=== PATIENT | female | born 1995 | race American Indian/Alaskan Native ===

== ENCOUNTER 2017-08-07 10:59 | Emergency (ER) | payer SELFPAY ==
[2017-08-07 11:19] VITALS: BP 121/76
--- NOTE | 2017-08-07 11:31 | Emergency Department Report ---
ED Rash HPI - HPI Chief Complaint: Skin Rash Stated Complaint: SWOLLEN ARM/ CARE Time Seen by Provider: 08/07/17 11:24 Duration: 5 Days Location: Upper Extremities (right forearm) Suspected Cause: Unknown Rash Symptoms: No Itching, No Facial Swelling, No Tongue/Oral Swelling, No Breathing Difficulties, No Choking Sensation, No Wheezing/Dyspnea, No Peeling, No Blistering, No Fever, No Lightheaded, No Malaise, No Myalgias Severity: severe (7/10) Other History: She reports that she was having in pain to her right forearm redness and swelling over 2 day period. She says she doesn't know what happened in. Pain is 7 out of 10. Tetanus vaccine is up-to-date. Pain feels sore and irritated. Denies any respiratory symptoms. Patient also reported that she is 5 weeks and requesting care. She denies any nausea, vomiting, abdominal or back pain. Denies any fever or chills. Denies any vaginal bleeding or discharge. Denies any urinary burning, frequency or urgency. Triage note reflect the patient says she was having pelvic pain and also left upper rib cage but patient says she is here today for rash on her right forearm and to get care because she is 5 weeks . ED Review of Systems ROS: Stated complaint: SWOLLEN ARM/ CARE Other details as noted in HPI Comment: All other systems reviewed and negative Constitutional: no symptoms reported ENT: denies: throat pain, congestion Respiratory: no symptoms reported Cardiovascular: denies: chest pain, palpitations, dyspnea on exertion, edema, syncope, paroxysmal nocturnal dyspnea Gastrointestinal: denies: abdominal pain, nausea, vomiting, diarrhea, constipation, hematemesis, melena Genitourinary: denies: urgency, dysuria, frequency, hematuria, discharge Musculoskeletal: arthralgia (right forearm). denies: back pain, joint swelling , myalgia Skin: rash, change in color (8 forearm) Neurological: denies: headache, weakness, numbness, paresthesias, confusion, abnormal gait, vertigo ED Past Medical Hx - Past Medical History Previous Medical History?: Yes Additional medical history: anemia - Surgical History Past Surgical History?: No - Family History Family history: no significant - Social History Smoking Status: Never Smoker Substance Use Type: None - Medications Home Medications: Home Medications Medication Instructions Recorded Confirmed Last Taken Type Miconazole Nitrate [Monistat 3] 15 gm VG QHS #3 crm.pf.allen 11/22/14 Unknown Rx Amoxicillin [Trimox CAP] 500 mg PO Q8H #30 capsule 05/28/16 Unknown Rx Diclofenac Sodium 75 mg PO BID #30 tablet.dr 05/28/16 Unknown Rx HYDROcodone/APAP 5-325 [[place] 1 each PO Q6HR PRN #7 tablet 05/28/16 Unknown Rx 5/325] Acetaminophen [Tylenol] 500 mg PO Q8HR PRN 4 Days #12 08/07/17 Unknown Rx tablet Cephalexin [Keflex] 500 mg PO Q8HR 10 Days #30 cap 08/07/17 Unknown Rx Vit-Fe Fumar-FA [ 1 tab PO QDAY 30 Days #30 tablet 08/07/17 Unknown Rx Vitamin] Rash Exam - Exam General: Vital signs noted. No distress. Alert and acting appropriately. This is a 21-year-old female well-nourished well-developed in no acute distress. HEENT: No Periorbital Edema, No Conjuctival Injection, No Chemosis, No Perioral Edema, No Tongue Edema, No Uvular Edema, No Compromised Airway, No Drooling Lungs: Yes Good Air Exchange, No Wheezes, No Ronchi, No Stridor, No Cough, No Labored Respirations, No Retractions, No Use of Accessory Muscles, No Other Abnormal Lung Sounds (no chest wall tenderness) Heart: Yes Regular (S1, S2. Regular rate and rhythm.), No Murmur Skin: Yes Tenderness (proximal right forearm), Yes Erythema (proximal right forearm 6x7 centimeter area of erythema), Yes Edema (mild swelling to the proximal right forearm), No Urticarial Rash, No Maculopapular Rash, No Morbilliform rash, No Bulla(e), No Excoriations, No Weeping, No Encrustations, No Other (she has normal range of motion of all extremities..) Other: Positive: Abdomen Normal (abdomen soft, nontender to palpate in all quadrants, no guarding or rebound tenderness. No CVA tenderness.), Neurologic Normal (GCS of 15, alert and oriented 3, speech is clear and fluid, normal gait. No motor or sensory deficit), Musculoskeletal Normal (+5 strength in all extremities, no joint deformity, crepitus or effusion. No joint erythema. Patient has less 2 pulses to all extremities. No deformities noted. No clubbing, cyanosis or edema. No neurovascular compromise.) ED Course Vital Signs 08/07/17 11:09 Temperature 98.7 F Pulse Rate 88 Respiratory 16 Rate Blood Pressure 121/76 O2 Sat by Pulse 100 Oximetry - Reevaluation(s) Reevaluation #1: 08/07/17 13:16 She received Tylenol plain 500 mg emergency for pain and positive relief. She was also given Rocephin 1 g IM in emergency room for cellulitis of her right forearm. ED Medical Decision Making - Medical Decision Making ED course: She presented to emergency room with complaints of right forearm redness and swelling and she does not know the cause. Physical findings with erythema 6 x 7 cm ear for redness, mild swelling and tenderness to proximal right forearm. She is also requesting care and is asymptomatic. She said she is 5 weeks and she does not have [facility] but patient does have access to [facility] she just needs to be referred to one. I discussed with patient that she has cellulitis of her right forearm and she will be treated with antibiotic and she can take plain Tylenol for pain as needed. I discussed with her that care is not offered any emergency room and she is not having any symptoms such as abdominal pain, nausea or vomiting, vaginal bleeding or discharge or back pain so I'll refer her to [facility] and she will need to call and Wednesday to schedule an appointment for visits. Patient was given Tylenol 500 mg in emergency room recently with her pain. She has cellulitis of her right forearm she was given Rocephin 1 g IM with no adverse reaction and she said her tetanus shot is up-to-date. Patient voiced understanding the discharge instructions treatment plan and need to follow-up for care. I will start her on vitamin. Discharged home in stable condition with prescription for Tylenol plain, Keflex, vitamin and given referrals fto various [facility] clinics. Discussed with her she has abdominal pain, back pain, vaginal bleeding to return to the emergency room [facility] otherwise follow up with [facility] for care Critical care attestation.: If time is entered above; I have spent that time in minutes in the direct care of this critically ill patient, excluding procedure time. ED Disposition Clinical Impression: Cellulitis of forearm, right, Pain in right forearm, Encounter for care in first trimester of first Disposition: DC-01 TO HOME OR SELFCARE Is pt being admited?: No Does the pt Need Aspirin: No Condition: Stable Instructions: Vitamins (By mouth), Cellulitis (ED), Arthralgia (ED), (ED) Additional Instructions: Please see referrals to [facility] doctors. Call on 08/09/2017 to schedule care Take vitamin as prescribed Take antibiotic as prescribed Increase fluid intake to 2-3 L of liquids daily Take Tylenol as needed for pain. Refer to prescription. care is not usually offered in an emergency room so you will need to follow up with [facility] to initiate care Prescriptions: Acetaminophen [Tylenol] 500 mg PO Q8HR PRN 4 Days #12 tablet PRN Reason: Pain, Mild (1-3) Cephalexin [Keflex] 500 mg PO Q8HR 10 Days #30 cap Vit-Fe Fumar-FA [ Vitamin] 1 tab PO QDAY 30 Days #30 tablet Referrals: PRIMARY CAREMD [Primary Care Provider] - 3-5 Days [facility] [Provider Group] - 08/09/17 [facility] [Provider Group] - 08/09/17 [facility] [Outside] - 08/09/17
[2017-08-07] MEDS ORDERED: ROCEPHIN IM STA (12:33)
[2017-08-07] MEDS ORDERED: TYLENOL PO ONE (12:34)
[2017-08-07] MEDS ORDERED: WATER FOR INJ (PF) 10 ML ONE (12:52)
== END 2017-08-07 13:49 | disposition home or self-care (01) ==
LOC: ED 10:59
DX: O26.891 Other specified pregnancy related conditions, first trimester (principal); L03.113 Cellulitis of right upper limb; Z3A.01 Less than 8 weeks gestation of pregnancy
CPT/HCPCS: 96372; 99282; J0696

== ENCOUNTER 2021-02-26 10:51 | Emergency (ER) | payer SELFPAY ==
[2021-02-26 12:55] LABS: Bacteria,Urine 2+ /HPF (Negative); Bilirubin,Urine NEG (Negative); Blood,Urine NEG (Negative); Color,Urine Yellow (Yellow); Mucus,Urine 2+ /HPF
[2021-02-26 13:08] LABS: Eosinophils % (Auto) 0.5 % (0.0-4.3); Hemoglobin 9.3 gm/dl (10.1-14.3); Lymphocytes % (Auto) 40.9 % (13.4-35.0); Mean Corpuscular HGB Conc 31 % (30-34); Monocytes # (Auto) 0.4 K/mm3 (0.0-0.8); Monocytes % (Auto) 7.9 % (0.0-7.3); Platelet Count 198 K/mm3 (140-440); Red Blood Count 4.73 M/mm3 (3.65-5.03)
[2021-02-26 13:10] LABS: Mean Corpuscular Volume 64 fl (79-97)
[2021-02-26 13:12] LABS: HCG Qualitative,Urine Negative (Negative)
[2021-02-26 13:16] LABS: Alanine Aminotransferase 16 units/L (7-56); Albumin 4.5 g/dL (3.9-5); Blood Urea Nitrogen 4 mg/dL (7-17); Calcium 9.4 mg/dL (8.4-10.2); Hemolysis Index 0
[2021-02-26 13:30] LABS: BUN/Creatinine Ratio 7
--- NOTE | 2021-02-26 17:17 | Emergency Department Report ---
ED Abdominal Pain HPI - General Chief Complaint: Abdominal Pain Stated Complaint: STOMACH PAIN PUI?: No Time Seen by Provider: 02/26/21 14:29 Source: patient Mode of arrival: Ambulatory Limitations: No Limitations - History of Present Illness Initial Comments: Patient is a 25-year-old female that presents emergency room with complaints of bilateral lower quadrant abdominal pain. Patient states her pain started 2 or 3 days ago. Patient also complains of nausea without vomiting. Patient denies fever and chills. Patient states the pain is a 10 out of 10. Patient states the pain radiates to her bilateral flanks. Patient denies dysuria. Patient denies upper abdominal pain. Patient denies chest pain. Patient denies sh ortness of breath. Patient denies dyspepsia. Patient denies diarrhea. Patient denies recent travel. Patient denies recent international travel. Patient denies exposure to the novel coronavirus. Patient denies sick contacts. Patient denies fever and chills. Patient denies cough. Patient denies diarrhea. Patient denies coming in contact with anybody with symptoms of the novel coronavirus. MD Complaint: abdominal pain -: Sudden Location: LLQ, RLQ Radiation: L flank, R flank Migration to: no migration Severity: severe Severity scale (0 -10): 10 Quality: stabbing Consistency: constant Improves With: rest Worsens With: movement Associated Symptoms: nausea. denies: vomiting, diarrhea, fever, chills, constipation, dysuria, hematemesis, hematochezia, melena, hematuria, syncope - Related Data Previous Rx's Medication Instructions Recorded Last Taken Type Miconazole Nitrate [Monistat 3] 15 gm VG QHS #3 crm.pf.allen 11/22/14 Unknown Rx Amoxicillin [Trimox CAP] 500 mg PO Q8H #30 capsule 05/28/16 Unknown Rx Diclofenac Sodium 75 mg PO BID #30 tablet. 05/28/16 Unknown Rx Acetaminophen [Tylenol] 500 mg PO Q8HR PRN 4 Days #12 08/07/17 Unknown Rx tablet Vit-Fe Fumar-FA [ 1 tab PO QDAY 30 Days #30 tablet 08/07/17 Unknown Rx Vitamin] HYDROcodone/APAP 5-325 [[place] 1 each PO Q6HR PRN #8 tablet 02/26/21 Unknown Rx 5-325 mg TAB] Ibuprofen [Motrin 800 MG tab] 800 mg PO Q8HR PRN #30 tablet 02/26/21 Unknown Rx Iron Fum,Ps/Folic/Bcomp,C No.9 1 each PO BID 30 Days #60 capsule 02/26/21 Unknown Rx [Integra Plus Capsule] cephALEXin [Keflex] 500 mg PO Q8HR 10 Days #30 cap 02/26/21 Unknown Rx Allergies Allergy/AdvReac Type Severity Reaction Status Date / Time No Known Allergies Allergy Verified 02/26/21 10:56 ED Review of Systems ROS: Stated complaint: STOMACH PAIN Other details as noted in HPI Constitutional: denies: chills, fever Eyes: denies: eye pain, eye discharge, vision change ENT: denies: ear pain, throat pain Respiratory: denies: cough, shortness of breath, wheezing Cardiovascular: denies: chest pain, palpitations Endocrine: no symptoms reported Gastrointestinal: as per HPI, abdominal pain, nausea. denies: vomiting, diarrhea Genitourinary: denies: urgency, dysuria, discharge Musculoskeletal: denies: back pain, joint swelling, arthralgia Skin: denies: rash, lesions Neurological: denies: headache, weakness, paresthesias Psychiatric: denies: anxiety, depression Hematological/Lymphatic: denies: easy bleeding, easy bruising ED Past Medical Hx - Past Medical History Previous Medical History?: Yes Additional medical history: anemia - Surgical History Past Surgical History?: No - Family History Family history: no significant - Social History Smoking Status: Never Smoker Substance Use Type: None - Medications Home Medications: Home Medications Medication Instructions Recorded Confirmed Last Taken Type Miconazole Nitrate [Monistat 3] 15 gm VG QHS #3 crm.pf.allen 11/22/14 Unknown Rx Amoxicillin [Trimox CAP] 500 mg PO Q8H #30 capsule 05/28/16 Unknown Rx Diclofenac Sodium 75 mg PO BID #30 tablet. 05/28/16 Unknown Rx Acetaminophen [Tylenol] 500 mg PO Q8HR PRN 4 Days #12 08/07/17 Unknown Rx tablet Vit-Fe Fumar-FA [ 1 tab PO QDAY 30 Days #30 tablet 08/07/17 Unknown Rx Vitamin] HYDROcodone/APAP 5-325 [[place] 1 each PO Q6HR PRN #8 tablet 02/26/21 Unknown Rx 5-325 mg TAB] Ibuprofen [Motrin 800 MG tab] 800 mg PO Q8HR PRN #30 tablet 02/26/21 Unknown Rx Iron Fum,Ps/Folic/Bcomp,C No.9 1 each PO BID 30 Days #60 capsule 02/26/21 Unknown Rx [Integra Plus Capsule] cephALEXin [Keflex] 500 mg PO Q8HR 10 Days #30 cap 02/26/21 Unknown Rx ED Physical Exam - General Limitations: No Limitations General appearance: alert, in no apparent distress - Head Head exam: Present: atraumatic, normocephalic - Eye Eye exam: Present: normal appearance - ENT ENT exam: Present: mucous membranes moist - Neck Neck exam: Present: normal inspection - Respiratory Respiratory exam: Present: normal lung sounds bilaterally. Absent: respiratory distress - Cardiovascular Cardiovascular Exam: Present: regular rate, normal rhythm. Absent: systolic murmur, diastolic murmur, rubs, gallop - GI/Abdominal GI/Abdominal exam: Present: soft, tenderness (Tenderness to palpation bilateral lower quadrants.), normal bowel sounds - Extremities Exam Extremities exam: Present: normal inspection - Back Exam Back exam: Present: normal inspection - Neurological Exam Neurological exam: Present: alert, oriented X3 - Psychiatric Psychiatric exam: Present: normal affect, normal mood - Skin Skin exam: Present: warm, dry, intact, normal color. Absent: rash ED Course Vital Signs 02/26/21 02/26/21 02/26/21 10:58 20:13 21:00 Temperature 98.6 F Pulse Rate 90 67 78 Respiratory 16 17 16 Rate Blood Pressure 104/60 Blood Pressure 110/70 127/82 [Left] O2 Sat by Pulse 100 98 100 Oximetry - Reevaluation(s) Reevaluation #1: Patient states her pain is slightly better. I discussed all results and clinical findings with patient. I discussed plan of care with patient. Patient agrees with plan of care. Patient is stable for discharge. Patient will be discharged home. Patient given discharge instructions. Patient voiced understanding of discharge instructions. 02/26/21 22:32 ED Medical Decision Making - Lab Data Result diagrams: 02/26/21 12:18 02/26/21 12:18 - Radiology Data Radiology results: report reviewed CT ABDOMEN AND PELVIS WITH CONTRAST HISTORY: abd pain x3days [id number] 100ml. COMPARISON: None. TECHNIQUE: CT images of the abdomen and pelvis were obtained following administration of intravenous contrast. All CT scans at this location are performed using CT dose reduction for ALARA by means of automated exposure control. CONTRAST: 100 ml of intravenous contrast administered. FINDINGS: Lungs/bones: The lung bases are clear. No acute osseous abnormality identified. Abdomen/pelvis: The liver, gallbladder, spleen, pancreas, adrenals, kidneys, and proximal GI tract appear unremarkable. Urinary bladder is unremarkable. Uterus contains a small amount of fluid in the central endometrial canal. There is a 3.2 cm simple-appearing cystic structure interposed between the right posterior aspect of the uterus and the anterior aspect of the rectum as seen on image 128 of series #2. There is trace simple pelvic free fluid is well. The right ovary is not well seen on this exam. The left ovary appears normal. No acute colonic abnormality identified. IMPRESSION: 1. Simple-appearing cystic structure in the deep pelvis as outlined above is most likely right adnexal/ovarian in origin and there is small amount of simple pelvic free fluid. Recommend follow-up pelvic ultrasound for more thorough evaluation. Pelvic Ultrasound HISTORY: lower abd pain.. TECHNIQUE: Grayscale and color imaging performed. COMPARISON: CT abdomen/pelvis from today FINDINGS: Uterus measures 8.8 x 4.5 x 5.3 cm with endometrial echocomplex measuring 1.1 cm. There is a complex appearing right adnexal/ovarian cyst with no internal blood flow. There is marginal blood flow. The right ovary otherwise appears normal. Left ovary also appears normal. Trace pelvic free fluid is present. IMPRESSION: Mildly complex right ovarian/adnexal cyst, most likely functional. Recommend follow-up within 6 weeks with pelvic ultrasound to ensure resolution. - Medical Decision Making Patient is a 25-year-old female presents emergency room with complaints of lower abdominal pain. Patient had labs done which were essentially unremarkable save for positive UA for UTI. Patient was tender on palpation patient had a CT scan patient CT shows findings and recommended an ultrasound. Pelvic ultrasound done and it showed complex right ovarian cyst. Patient is stable for discharge. Patient given antibiotics in the ER patient given fluids in ER. Patient responded well to treatment. Patient pain improved while in ER. Patient given oral antibiotics as a prescription. Patient does not require further inpatient or emergency room services. Patient stable for discharge. Patient discharged home. - Differential Diagnosis Appendicitis, pyelonephritis, abdominal pain, nausea, UTI, ovarian cyst Critical care attestation.: If time is entered above; I have spent that time in minutes in the direct care of this critically ill patient, excluding procedure time. ED Disposition Clinical Impression: Abdominal pain Qualifiers: Abdominal location: lower abdomen, unspecified Qualified Code(s): R10.30 - Lower abdominal pain, unspecified UTI (urinary tract infection) Qualifiers: Urinary tract infection type: acute cystitis Hematuria presence: with hematuria Qualified Code(s): N30.01 - Acute cystitis with hematuria Ovarian cyst Qualifiers: Laterality: right Qualified Code(s): N83.201 - Unspecified ovarian cyst, right side Anemia Qualifiers: Anemia type: unspecified type Qualified Code(s): D64.9 - Anemia, unspecified Disposition: DC- TO HOME OR SELFCARE Is pt being admited?: No Does the pt Need Aspirin: No Condition: Stable Instructions: Abdominal Pain, Adult, Urinary Tract Infection, Adult, [id number], Ovarian Cyst, [id number], Flank Pain, Adult, [id number], Abdominal Pain (ED) Additional Instructions: Patient to follow-up with primary care in 2 to 3 days. Patient to follow-up with [facility] in 2 to 3 days. Patient to rest. Patient to increase water. . Patient to take Tylenol or ibuprofen as needed for pain. Patient to take meds as directed. Patient to return to the ER if condition worsens, changes or new symptoms arise. Prescriptions: Iron Fum,Ps/Folic/Bcomp,C No.9 [Integra Plus Capsule] 1 each PO BID 30 Days #60 capsule cephALEXin [Keflex] 500 mg PO Q8HR 10 Days #30 cap Ibuprofen [Motrin 800 MG tab] 800 mg PO Q8HR PRN #30 tablet PRN Reason: Pain , Severe (7-10) HYDROcodone/APAP 5-325 [[place] 5-325 mg TAB] 1 each PO Q6HR PRN #8 tablet PRN Reason: Pain Referrals: PRIMARY CARE, [Primary Care Provider] - 2-3 Days Time of Disposition: 22:19
[2021-02-26] MEDS ORDERED: cefTRIAXone/NS 2 GM/100 ML 2 GM/100 ML BAG IV ONE (17:54)
[2021-02-26] MEDS ORDERED: ONDANSETRON 4 MG/2 ML INJ IV ONE (17:54)
[2021-02-26] MEDS ORDERED: SODIUM CHLORIDE 0.9% 1000 ML 1,000 ML IV ONE (17:54)
--- NOTE | 2021-02-26 19:41 | Cat Scan Report ---
CT ABDOMEN AND PELVIS WITH CONTRAST HISTORY: abd pain x3days [id number] 100ml. COMPARISON: None. TECHNIQUE: CT images of the abdomen and pelvis were obtained following administration of intravenous contrast. All CT scans at this location are performed using CT dose reduction for ALARA by means of automated exposure control. CONTRAST: 100 ml of intravenous contrast administered. FINDINGS: Lungs/bones: The lung bases are clear. No acute osseous abnormality identified. Abdomen/pelvis: The liver, gallbladder, spleen, pancreas, adrenals, kidneys, and proximal GI tract a ppear unremarkable. Urinary bladder is unremarkable. Uterus contains a small amount of fluid in the central endometrial c anal. There is a 3.2 cm simple-appearing cystic structure interposed between the right posterior aspe ct of the uterus and the anterior aspect of the rectum as seen on image 128 of series #2. There is tr maurice simple pelvic free fluid is well. The right ovary is not well seen on this exam. The left ovary a ppears normal. No acute colonic abnormality identified. IMPRESSION: 1. Simple-appearing cystic structure in the deep pelvis as outlined above is most likely right adnexa l/ovarian in origin and there is small amount of simple pelvic free fluid. Recommend follow-up pelvic ultrasound for more thorough evaluation. Signer Name: Reilly Diaz MD Signed: 02/26/2021 7:37 PM Workstation Name: [id number]
[2021-02-26] MEDS ORDERED: ONDANSETRON 4 MG/2 ML INJ ONE (19:59)
--- NOTE | 2021-02-26 21:50 | Ultrasound Report ---
Pelvic Ultrasound HISTORY: lower abd pain.. TECHNIQUE: Grayscale and color imaging performed. COMPARISON: CT abdomen/pelvis from today FINDINGS: Uterus measures 8.8 x 4.5 x 5.3 cm with endometrial echocomplex measuring 1.1 cm. There is a complex appearing right adnexal/ovarian cyst with no internal blood flow. There is margina l blood flow. The right ovary otherwise appears normal. Left ovary also appears normal. Trace pelvic free fluid is present. IMPRESSION: Mildly complex right ovarian/adnexal cyst, most likely functional. Recommend follow-up wi thin 6 weeks with pelvic ultrasound to ensure resolution. Signer Name: Reilly Diaz MD Signed: 02/26/2021 9:46 PM Workstation Name: [id number]
[2021-02-26] MEDS ORDERED: AZITHROMYCIN 1 GM ORAL PWDR PACKET PO ONE (21:57)
[2021-02-26 22:42] VITALS: BP 108/60
== END 2021-02-26 22:57 | disposition home or self-care (01) ==
LOC: ED 10:51
DX: N39.0 Urinary tract infection, site not specified (principal); N83.201 Unspecified ovarian cyst, right side; D64.9 Anemia, unspecified; Z79.899 Other long term (current) drug therapy
CPT/HCPCS: 36415; 74177; 76856; 80053; 81001; 81025; 83690; 84702; 85025; 87086; 96365; 96375; 99284; J0696; J2405; J7030; Q9967

== ENCOUNTER 2022-02-13 16:37 | Emergency (ER) | payer SELFPAY ==
[2022-02-13] MEDS ORDERED: SODIUM CHLORIDE 0.9% 1000 ML 1,000 ML IV ONE (17:14)
--- NOTE | 2022-02-13 17:21 | Emergency Department Report ---
HPI - General Chief Complaint: Syncope Time Seen by Provider: 02/13/22 17:01 - [facility] HPI: Room 20 The patient is a 26-year-old female present with a chief complaint of syncopal episode. The patient states earlier this morning she felt "faint" so she sat down. Patient states she developed some nausea but no vomiting. Patient states she tried to drink some water but it made her more nauseous. Patient states she contacted her mother who picked her up from work. Approximate 1.5 hours later the patient states she attempted to eat some fries and chicken nuggets but this made her nauseous so she only had a scant amount. Approximate 40 minutes later the patient states she was standing in her apartment complex lobby when she began to feel hot patient bent over on the counter just awakened on the floor with people standing around her telling her to keep her eyes open. Patient states she had a similar episode to this approximately years ago while she was . Patient states her last cycle occurred on January 08 and she is normally regular. Patient states she has been too frightened to take a test ED Past Medical Hx - Past Medical History Previous Medical History?: No Additional medical history: anemia - Surgical History Past Surgical History?: No - Family History Family history: no significant - Social History Smoking Status: Never Smoker Substance Use Type: None (Denies illicit drug use) - Medications Home Medications: Home Medications Medication Instructions Recorded Confirmed Last Taken Type Iron Fum,Ps/Folic/Bcomp,C No.9 1 each PO BID 30 Days #60 capsule 02/26/21 Unknown Rx [Integra Plus Capsule] Acetaminophen [Non-Aspirin Extra 500 mg PO Q6HR PRN #30 tablet 06/16/21 Unknown Rx Strength] Ibuprofen [Motrin] 600 mg PO Q8H PRN #30 tablet 06/16/21 Unknown Rx Ondansetron [Zofran Odt] 4 mg PO Q8HR PRN #20 tab.rapdis 06/16/21 Unknown Rx ED Review of Systems ROS: Stated complaint: SYNCOPE Other details as noted in HPI Constitutional: weakness Eyes: denies: eye pain ENT: denies: throat pain Respiratory: no symptoms reported Cardiovascular: denies: chest pain Endocrine: no symptoms reported Gastrointestinal: nausea. denies: abdominal pain, vomiting Genitourinary: abnormal menses. denies: dysuria Musculoskeletal: denies: back pain Neurological: denies: headache Physical Exam - Physical Exam Vital Signs: Vital Signs 02/13/22 16:51 Temperature 99.9 F H Pulse Rate 90 Respiratory 16 Rate Blood Pressure 140/90 [Left] O2 Sat by Pulse 100 Oximetry Physical Exam: GENERAL: The patient is well-developed well-nourished female lying on stretcher not appearing to be in acute distress. [] HEENT: Normocephalic. Atraumatic. Extraocular motions are intact. Patient has moist mucous membranes. NECK: Supple. Trachea midline CHEST/LUNGS: Clear to auscultation. There is no respiratory distress noted. HEART/CARDIOVASCULAR: Regular. There is no tachycardia. There is no gallop rub or murmur. ABDOMEN: Abdomen is soft, nontender. Patient has normal bowel sounds. There is no abdominal distention. SKIN: There is no rash. There is no edema. There is no diaphoresis. NEURO: The patient is awake, alert, and oriented. The patient is cooperative. The patient has no focal neurologic deficits. The patient has normal speech. Cranial nerves II through XII grossly intact. GCS 15 MUSCULOSKELETAL: There is no evidence of acute injury. ED Course Vital Signs 02/13/22 16:51 Temperature 99.9 F H Pulse Rate 90 Respiratory 16 Rate Blood Pressure 140/90 [Left] O2 Sat by Pulse 100 Oximetry - Consultations Consultation #1: 02/13/22 20:32 BIOINFORMATICS SOFTWARE ENGINEER paged 02/13/22 20:37 Case discussed with BIOINFORMATICS SOFTWARE ENGINEER Dr. Field- states patient should return in 48 hours to repeat serum hCG and pelvic ultrasound to assess for ectopic. Strong warnings in the interim ED Medical Decision Making - Lab Data Result diagrams: 02/13/22 17:20 02/13/22 17:20 Laboratory Tests 02/13/22 02/13/22 02/13/22 17:20 17:20 17:20 WBC 6.8 RBC 4.92 Hgb 9.9 L Hct 33.0 MCV 67 L MCH 20 L MCHC 30 RDW 19.6 H Plt Count 175 Lymph % (Auto) 11.6 L [place] % (Auto) 11.9 H Eos % (Auto) 0.1 Baso % (Auto) 0.4 Lymph # (Auto) 0.8 L [place] # (Auto) 0.8 Eos # (Auto) 0.0 Baso # (Auto) 0.0 Seg Neutrophils % 76.0 H Seg Neutrophils # 5.2 PT 13.4 INR 0.92 Sodium 134 L Potassium 3.7 Chloride 102.5 Carbon Dioxide 19 L Anion Gap 16 BUN 4 L Creatinine 0.5 L Estimated GFR > 60 BUN/Creatinine Ratio 8 Glucose 73 Calcium 9.2 Total Creatine Kinase 70 CK-MB (CK-2) < 1.0 CK-MB (CK-2) Rel Index 1.4 Troponin T < 0.010 TSH Free T4 HCG, Quant 02/13/22 17:20 WBC RBC Hgb Hct MCV MCH MCHC RDW Plt Count Lymph % (Auto) [place] % (Auto) Eos % (Auto) Baso % (Auto) Lymph # (Auto) [place] # (Auto) Eos # (Auto) Baso # (Auto) Seg Neutrophils % Seg Neutrophils # PT INR Sodium Potassium Chloride Carbon Dioxide Anion Gap BUN Creatinine Estimated GFR BUN/Creatinine Ratio Glucose Calcium Total Creatine Kinase CK-MB (CK-2) CK-MB (CK-2) Rel Index Troponin T TSH 0.387 Free T4 1.43 HCG, Quant 965.3 H - EKG Data -: EKG Interpreted by Md EKG shows normal: sinus rhythm, axis Rate: normal (93 bpm) - EKG Data When compared to previous EKG there are: previous EKG unavailable Interpretation: nonspecific ST-T wave kojo - Radiology Data Radiology results: report reviewed (Pelvic ultrasound), image reviewed (Pelvic ultrasound) [facility] [address] [id number] Ultrasound Report Signed Patient: CHRISTIANO NAPOLES MR#: [id number] : 1995 Acct:[id number] Age/Sex: 26 / F ADM Date: 02/13/22 Loc: ED Attending Dr: Ordering Physician: KWAN WALKER MD Date of Service: 02/13/22 Procedure(s): US OB transvaginal Accession Number(s): [id number] cc: KWAN WALKER MD OB ultrasound transvaginal and transabdominal INDICATION: FINDINGS: Uterus measures 8.1 x 5.7 x 6.2 cm. Right ovary measures 4.6 x 2.8 x 3.7 cm with a right adnexal cyst is area measuring 1.1 x 0.8 x 0.7 cm. Left ovary appears normal in size and appearance. No free fluid is seen. No intrauterine . IMPRESSION: No intrauterine is identified. Small cystic area in the right adnexa measures 1.1 x 0.8 x 0.7 cm. Findings could represent a right adnexal cyst however ectopic cannot be excluded. IMPORTANT FINDING: Time of Communication (DIELECTRIC TESTING MACHINE OPERATOR/CDT): 700 Signer Name: Manuel Smith MD Signed: 02/13/2022 8:00 PM Workstation Name: [id number] Transcribed By: CW Dictated By: MARCELLO SMITH MD Electronically Authenticated By: MARCELLO SMITH MD Signed Date/Time: 02/13/221999 DD/ 57 TD/TT: - Differential Diagnosis , dehydration, UTI, Critical care attestation.: If time is entered above; I have spent that time in minutes in the direct care of this critically ill patient, excluding procedure time. ED Disposition Clinical Impression: , Syncope Disposition: 01 HOME / SELF CARE / HOMELESS Is pt being admited?: No Does the pt Need Aspirin: No Condition: Stable Instructions: Syncope (ED) Additional Instructions: Patient return to the emergency department in 48 hours to have a repeat serum hCG and repeat pelvic ultrasound performed. Today your serum hCG was 965.3 mIU/mL. Return to the emergency department should you develop worsening sym ptoms, severe abdominal pain, vaginal bleed, inability to tolerate food or liquids, high fever or any other concerns Referrals: KANA FIELD MD [Staff Physician] - 3-5 Days Time of Disposition: 21:01
[2022-02-13 17:57] LABS: Basophils % (Auto) 0.4 % (0.0-1.8); Eosinophils % (Auto) 0.1 % (0.0-4.3); Lymphocytes # (Auto) 0.8 K/mm3 (1.2-5.4); Lymphocytes % (Auto) 11.6 % (13.4-35.0); Mean Corpuscular HGB Conc 30 % (30-34); Monocytes # (Auto) 0.8 K/mm3 (0.0-0.8); Monocytes % (Auto) 11.9 % (0.0-7.3); Red Blood Count 4.92 M/mm3 (3.65-5.03); Red Cell Distribution Width 19.6 % (13.2-15.2)
[2022-02-13 18:20] LABS: Blood Urea Nitrogen 4 mg/dL (7-17); Calcium 9.2 mg/dL (8.4-10.2); Hemolysis Index 22
[2022-02-13 18:23] LABS: BUN/Creatinine Ratio 8; Creatine Kinase MB < 1.0 ng/mL (0.0-4.0)
[2022-02-13 18:30] LABS: Free T4 (Free Thyroxine) 1.43 ng/dL (0.76-1.46); HCG,Quantitative 965.3 mIU/mL (0-4)
[2022-02-13 19:30] LABS: Hemoglobin 9.9 gm/dl (10.1-14.3); Mean Corpuscular Volume 67 fl (79-97)
[2022-02-13 19:44] LABS: INR 0.92 (0.87-1.13)
--- NOTE | 2022-02-13 20:05 | Ultrasound Report ---
OB ultrasound transvaginal and transabdominal INDICATION: FINDINGS: Uterus measures 8.1 x 5.7 x 6.2 cm. Right ovary measures 4.6 x 2.8 x 3.7 cm with a right ad nexal cyst is area measuring 1.1 x 0.8 x 0.7 cm. Left ovary appears normal in size and appearance. No free fluid is seen. No intrauterine . IMPRESSION: No intrauterine is identified. Small cystic area in the right adnexa measures 1.1 x 0.8 x 0 .7 cm. Findings could represent a right adnexal cyst however ectopic cannot be excluded. IMPORTANT FINDING: Time of Communication (GROUNDMAN/LINEMAN/CDT): 700 Signer Name: Manuel Smith MD Signed: 02/13/2022 8:00 PM Workstation Name: [id number]
--- NOTE | 2022-02-13 20:05 | Ultrasound Report ---
OB ultrasound transvaginal and transabdominal INDICATION: FINDINGS: Uterus measures 8.1 x 5.7 x 6.2 cm. Right ovary measures 4.6 x 2.8 x 3.7 cm with a right ad nexal cyst is area measuring 1.1 x 0.8 x 0.7 cm. Left ovary appears normal in size and appearance. No free fluid is seen. No intrauterine . IMPRESSION: No intrauterine is identified. Small cystic area in the right adnexa measures 1.1 x 0.8 x 0 .7 cm. Findings could represent a right adnexal cyst however ectopic cannot be excluded. IMPORTANT FINDING: Time of Communication (WELDING MACHINE OPERATOR SUBMERGED ARC/CDT): 700 Signer Name: Manuel Smith MD Signed: 02/13/2022 8:00 PM Workstation Name: [id number]
[2022-02-13 20:39] LABS: Platelet Count 175 K/mm3 (140-440)
[2022-02-13] MEDS ORDERED: SODIUM CHLORIDE 0.9% 1000 ML 1,000 ML ONE (21:07)
[2022-02-13 23:31] VITALS: BP 125/77
--- NOTE | 2022-02-14 11:27 | Electrocardiograph Report ---
[facility] Test Date: 2022-02-13 Test Time: 20:48:52 Pat Name: CHRISTIANO NAPOLES Department: Room: Gender: F [employer]: JOEY : 1995 Requested By: KWAN WALKER Order Number: [id number] Reading MD: Juan Antonio Felton Measurements Intervals [place] Rate: 93 P: 57 W[place]: 170 QRS: 23 QRSD: 87 T: -5 QT: 332 QTc: 412 Interpretive Statements Sinus rhythm Nonspecific T abnormalities, anterior leads Compared to ECG 06/16/2021 18:00:25 T-wave abnormality now present Electronically Signed On 02-14-2022 11:27:09 EDT by Juan Antonio Felton
== END 2022-02-13 22:30 | disposition home or self-care (01) ==
LOC: ED 16:37
DX: O26.891 Other specified pregnancy related conditions, first trimester (principal); R55 Syncope and collapse; Z3A.01 Less than 8 weeks gestation of pregnancy
CPT/HCPCS: 36415; 76801; 76817; 80048; 82550; 82553; 84439; 84443; 84484; 84702; 85025; 85610; 93005; 96360; 99284; J7030

== ENCOUNTER 2022-02-17 19:43 | Emergency (ER) | payer SELFPAY ==
[2022-02-17 20:22] VITALS: BP 110/64
== END 2022-02-18 02:23 | disposition left against medical advice (07) ==
LOC: ED 19:43
DX: Z00.00 Encounter for general adult medical examination without abnormal findings (principal); Z53.21 Procedure and treatment not carried out due to patient leaving prior to being seen by health care provider
CPT/HCPCS: 36415; 84702